=== PATIENT | female | born 1965 | race Caucasian/White ===

== ENCOUNTER 2018-10-13 13:46 | Outpatient (CLI) | payer MEDICARE, MEDICAID ==
[2018-10-13 16:20] LABS: BASOPHILS # (AUTO) 0.1 X10'3 (0-0.2); BASOPHILS % (AUTO) 1.5 % (0-1); EOSINOPHILS # (AUTO) 0.1 X10'3 (0-0.9); EOSINOPHILS % (AUTO) 1.2 % (0-6); LYMPHOCYTES # (AUTO) 1.2 X10'3 (1.1-4.8); LYMPHOCYTES % (AUTO) 26.6 % (21-51); MEAN CORPUSCULAR HEMOGLOBIN 30.1 PG (27.0-31.0); MEAN CORPUSCULAR HGB CONC 31.1 % (33.0-36.5); MEAN CORPUSCULAR VOLUME 97.1 FL (78-98); MEAN PLATELET VOLUME 8.9 FL (7.4-10.4); MONOCYTES # (AUTO) 0.3 X10'3 (0-0.9); MONOCYTES % (AUTO) 7.4 % (2-12); NEUTROPHILS # (AUTO) 2.8 X10'3 (1.8-7.7); NEUTROPHILS % (AUTO) 63.3 % (42-75); PRE OP HEMOGLOBIN 13.7 g/dL (12.0-16.0); PRE OP PLATELET COUNT 180 X10'3 (140-440); RED BLOOD COUNT 4.53 X10'6 (4.20-5.60); RED CELL DISTRIBUTION WIDTH 17.2 % (11.5-14.5)
[2018-10-13] MEDS ORDERED: GRIS500T7 PO (16:47)
[2018-10-13] MEDS ORDERED: ERYT1OIN6 EACHEYE (16:47)
[2018-10-13] MEDS ORDERED: EYEL1MED2 EACHEYE (16:47)
[2018-10-13] MEDS ORDERED: [UNRECOGNIZED DRUG - OTHER] PO (16:47)
[2018-10-13] MEDS ORDERED: PROBIOTIC GUMMY PO (16:47)
[2018-10-13] MEDS ORDERED: LORA-512 PO (16:47)
[2018-10-13] MEDS ORDERED: ASCO500T87 PO (16:47)
[2018-10-13] MEDS ORDERED: DOCU-261 PO (16:47)
[2018-10-13] MEDS ORDERED: ATOR20TA PO (16:47)
[2018-10-13] MEDS ORDERED: CLIN150C8 PO (16:47)
[2018-10-13] MEDS ORDERED: MENT5.8L12 (16:47)
[2018-10-13] MEDS ORDERED: LEVO100T PO (16:47)
[2018-10-13] MEDS ORDERED: ACET-812 PO (16:47)
[2018-10-13 17:23] LABS: ALBUMIN 3.6 G/DL (3.4-5.0); ALBUMIN/GLOBULIN RATIO 0.8 (1.1-1.5); ALKALINE PHOSPHATASE 102 IU/L (46-116); BLOOD UREA NITROGEN 18 MG/DL (7-18); BUN/CREATININE RATIO 22.8 (6.6-38.0); CHLORIDE 103 MMOL/L (99-107); CREATININE 0.79 MG/DL (0.40-0.90); PRE OP ALT 44 U/L (30-65); PRE OP ANION GAP 7 (8-16); PRE OP AST 38 U/L (10-37); PRE OP BILIRUB, TOTAL 0.4 MG/DL (0.0-1.0); PRE OP GLUCOSE 88 MG/DL (70-104); PRE OP SODIUM 140 MMOL/L (135-145); TOTAL CARBON DIOXIDE 30.1 MMOL/L (24-32); eGFR 76 ML/MIN
== END 2018-10-13 23:59 | disposition home or self-care (01) ==
LOC: PRE-OP 13:46 → EDSTATUS 10-14 14:00
PROVIDERS: ATTEND Surgery
DX: Z01.818 Encounter for other preprocedural examination (principal); K43.9 Ventral hernia without obstruction or gangrene; R94.31 Abnormal electrocardiogram [ECG] [EKG]; I45.19 Other right bundle-branch block
CPT/HCPCS: 36415; 80053; 84443; 85025; 93005

== ENCOUNTER 2018-11-11 10:48 | Observation (INO) | payer MEDICARE, MEDICAID ==
[2018-11-06 11:21] LABS: ALBUMIN 3.8 G/DL (3.4-5.0); ALBUMIN/GLOBULIN RATIO 0.8 (1.1-1.5); ALKALINE PHOSPHATASE 114 IU/L (46-116); BLOOD UREA NITROGEN 14 MG/DL (7-18); BUN/CREATININE RATIO 19.2 (6.6-38.0); CALCIUM 9.1 MG/DL (8.5-10.1); CHLORIDE 104 MMOL/L (99-107); CREATININE 0.73 MG/DL (0.40-0.90); PRE OP ALT 53 U/L (30-65); PRE OP ANION GAP 6 (8-16); PRE OP AST 42 U/L (10-37); PRE OP BILIRUB, TOTAL 0.4 MG/DL (0.0-1.0); PRE OP GLUCOSE 89 MG/DL (70-104); PRE OP POTASSIUM 4.3 MMOL/L (3.4-5.1); PRE OP SODIUM 141 MMOL/L (135-145); TOTAL CARBON DIOXIDE 30.6 MMOL/L (24-32); TOTAL PROTEIN 8.5 G/DL (6.4-8.2); eGFR 84 ML/MIN
[2018-11-06 11:28] LABS: PRE OP INR 1.1 INR; PRE OP PROTIME 10.8 SECONDS (9.0-12.0)
[2018-11-06 11:33] LABS: BASOPHILS # (AUTO) 0.1 X10'3 (0-0.2); BASOPHILS % (AUTO) 1.3 % (0-1); EOSINOPHILS # (AUTO) 0.1 X10'3 (0-0.9); EOSINOPHILS % (AUTO) 2.4 % (0-6); LYMPHOCYTES # (AUTO) 0.9 X10'3 (1.1-4.8); LYMPHOCYTES % (AUTO) 17.7 % (21-51); MEAN CORPUSCULAR HEMOGLOBIN 30.5 PG (27.0-31.0); MEAN CORPUSCULAR HGB CONC 31.4 % (33.0-36.5); MEAN CORPUSCULAR VOLUME 97.2 FL (78-98); MEAN PLATELET VOLUME 8.5 FL (7.4-10.4); MONOCYTES # (AUTO) 0.4 X10'3 (0-0.9); MONOCYTES % (AUTO) 6.7 % (2-12); NEUTROPHILS # (AUTO) 3.8 X10'3 (1.8-7.7); NEUTROPHILS % (AUTO) 71.9 % (42-75); PRE OP HEMATOCRIT 46.7 % (35.0-45.0); PRE OP HEMOGLOBIN 14.7 g/dL (12.0-16.0); PRE OP PLATELET COUNT 174 X10'3 (140-440); RED BLOOD COUNT 4.81 X10'6 (4.20-5.60); RED CELL DISTRIBUTION WIDTH 15.9 % (11.5-14.5)
[2018-11-11] VITALS (19 sets, daily range): BP systolic 91–124; BP diastolic 49–85
[~2018-11-11] VITALS: Ht 142.2 cm; Wt 52.6 kg
[~2018-11-11 10:48] MED LIST: ACET-812 PO; ASCO500T87 PO; ATOR20TA PO; CLIN150C8 PO; CLINDAmcin 900mg/NS 50ml IVPB 50 ML IV ONE; DOCU-261 PO; ERYT1OIN6 EACHEYE; EYEL1MED2 EACHEYE; GRIS500T7 PO; LEVO100T PO; LORA-512 PO; PROBIOTIC GUMMY PO; [UNRECOGNIZED DRUG - OTHER] PO; famotidine 20mg tablet PO ONE; ringers solution, lacted 1,000 ML IV SCH
[2018-11-11] MEDS ORDERED: BUPIVAcaine/PF 2.5mg/ml (0.25%) 10ml vial ONE (13:10)
[2018-11-11] MEDS ORDERED: sevoflurane 250ml liquid IH ONE (13:39)
[2018-11-11] MEDS ORDERED: midazolam 2 mg/2 ml injection ONE (13:53)
[2018-11-11] MEDS ORDERED: fentaNYL/PF 50MCG/1 ML 2ML syringe ONE (13:55)
[2018-11-11] MEDS ORDERED: ringers solution, lacted 1,000 ML IV SCH (14:17)
[2018-11-11] MEDS ORDERED: proCHLORperazine 10 MG/2 ml inj IV PRN (14:20)
[2018-11-11] MEDS ORDERED: ondansetron/PF 4mg/2ml inj IV PRN ×2 (14:20→15:20)
[2018-11-11] MEDS ORDERED: morphine 4 MG/ML inj SYRINge IV PRN (14:20)
[2018-11-11] MEDS ORDERED: meperidine/PF 25mg/ml syringe IV PRN ×3 (14:20)
[2018-11-11] MEDS ORDERED: ePHEDrine 50MG/ML INJ. ONE (14:56)
[2018-11-11] MEDS ORDERED: dexamethasone sod phosphate 4mg/ml inj. ONE (14:56)
[2018-11-11] MEDS ORDERED: rocuronium 10mg/ml inj IV ONE (14:56)
[2018-11-11] MEDS ORDERED: LIDOcaine 2% (20mg/ml) 5ml vial ONE (14:56)
[2018-11-11] MEDS ORDERED: neostigmine methylsulfate 1 MG/ML 10ml vial ONE (14:56)
[2018-11-11] MEDS ORDERED: ondansetron/PF 4mg/2ml inj ONE (14:56)
[2018-11-11] MEDS ORDERED: propofol inj 20 ML IV ONE (14:56)
[2018-11-11] MEDS ORDERED: glycopyrrolate 0.2mg/ml inj ONE (14:56)
[2018-11-11] MEDS ORDERED: non-formulary drug (Loratadine* (Alavert*) 1 TAB) PO PRN (15:50)
[2018-11-11] MEDS ORDERED: clindamycin 150mg capsule PO PRN (15:50)
[2018-11-11] MEDS ORDERED: loratadine 10mg tablet PO PRN (15:55)
[2018-11-11] MEDS: morphine 4 MG/ML inj SYRINge IV PRN ×2 (16:31→16:40)
[2018-11-11] MEDS: potassium CL 20mEq in D5-1/2NS 1,000 ML IV SCH (18:29)
[2018-11-11] MEDS ORDERED: non-formulary drug (Acetaminophen (Tylenol Extra Strength) 2 TABLET) PO SCH (20:00)
[2018-11-11] MEDS: acetaminophen 325mg tablet PO SCH (20:00)
[2018-11-11] MEDS ORDERED: EYELID CLEANSER COMBINATION EACHEYE SCH (21:00)
[2018-11-11] MEDS ORDERED: docusate sod 100mg capsule PO SCH ×2 (21:00)
[2018-11-11] MEDS ORDERED: atorvastatin 20mg tablet PO SCH ×2 (21:00)
[2018-11-11] MEDS ORDERED: GRISEOFULVIN PO SCH (21:00)
[2018-11-11] MEDS ORDERED: erythromycin ophthalmic ointment 1gm tube EACHEYE SCH ×2 (21:00)
[2018-11-11] MEDS: HYDROcodone/acetaminophen 10/325mg tab PO PRN (21:09)
[2018-11-12] MEDS: potassium CL 20mEq in D5-1/2NS 1,000 ML IV SCH ×2 (04:42→16:20)
[2018-11-12] MEDS: HYDROcodone/acetaminophen 10/325mg tab PO PRN (04:43)
[2018-11-12] MEDS ORDERED: levoTHYROXINE 100mcg tablet PO SCH ×2 (07:00→08:00)
[2018-11-12] MEDS: acetaminophen 325mg tablet PO SCH (07:57)
[2018-11-12 08:00] VITALS: BP 88/51
[2018-11-12] MEDS ORDERED: PROBIOTIC GUMMY PO SCH (08:00)
[2018-11-12] MEDS ORDERED: lactobacillus rhamnosus 10,000 MMU CELLS/CAPSULE PO SCH (08:00)
[2018-11-12] MEDS ORDERED: [UNRECOGNIZED DRUG - OTHER] PO SCH (08:00)
[2018-11-12] MEDS ORDERED: multivitamins, therapeutics tablet PO SCH (08:00)
[2018-11-12] MEDS: GRISEOFULVIN 500 MG PO SCH ×2 (08:00→13:00)
[2018-11-12] MEDS ORDERED: ASCORBIC ACID PO SCH (08:00)
[2018-11-12] MEDS ORDERED: ascorbic acid 500mg tablet PO SCH (08:00)
[2018-11-12 12:00] VITALS: BP 89/62
[2018-11-12] MEDS: HYDROcodone/acetaminophen 5mg/325mg tablet PO PRN ×2 (12:21→18:31)
[2018-11-12] MEDS ORDERED: ACET1TAB12 PO (16:55)
== END 2018-11-12 17:30 | disposition home or self-care (01) ==
LOC: PAS 10:48 → SUR 3N 16:38
PROVIDERS: ADMIT Surgery; ATTEND Surgery
DX: K43.9 Ventral hernia without obstruction or gangrene (principal); K59.09 Other constipation
CPT/HCPCS: 36415; 49570; 80053; 84443; 85025; 85610; 85730; 96374; 96375; A6449; C1781; G0378; J0690; J1100; J2001; J2175; J2250; J2270; J2405; J2704; J2710; J3010; J3490; J7120; 88302; A7000; C1713